=== PATIENT | female | born 1955 | race Caucasian/White ===

== ENCOUNTER → 2017-02-13 | Outpatient (REF) | payer MEDICARE ==
[~2017-02-13] MED LIST: /CELE20CA PO; GABA300C2 PO; PERC7.5T12 PO; PRAZ1CAP PO; SERO50TA PO; SOMA350T PO; TRAZ50TA2 PO; VENL37TA OR; WELL75TA PO; flexeril OR; oxycodone OR
[2017-02-13 19:27] LABS: TOTAL PROTEIN 6.9 GM/DL (6.4-8.2)
[2017-02-13 19:32] LABS: VITAMIN B12 LEVEL 1687 PG/ML
[2017-02-13 19:33] LABS: FOLATE 22.7 NG/ML
[2017-02-14 12:52] LABS: ALBUMIN 4.24 GM/DL (3.29-5.55); ALBUMIN % 61.5 % (55.8-66.1); GAMMA GLOBULIN % 12.4 % (11.1-18.8)
[2017-02-18 08:06] LABS: Lyme Disease IgG/IgM Antibodie <0.91 ISR (0.00-0.90); Lyme Disease IgM Ab Quantitati <0.80 index (0.00-0.79); VITAMIN E LEVEL 12.1 mg/L (6.5-21.5)
== END ==
LOC: M LABNEURO 13:28
PROVIDERS: ATTEND Psychiatry & Neurology Neurology
DX: E11.9 Type 2 diabetes mellitus without complications (principal); A69.20 Lyme disease, unspecified; E61.0 Copper deficiency; G60.9 Hereditary and idiopathic neuropathy, unspecified; Z79.899 Other long term (current) drug therapy

== ENCOUNTER → 2021-01-10 | Outpatient (CLI) | payer MEDICARE ==
[~2021-01-10] MED LIST changes: -/CELE20CA PO; +CELE1CAP4 PO
== END ==
LOC: M PAIN 08:30
PROVIDERS: ATTEND Anesthesiology
DX: M96.1 Postlaminectomy syndrome, not elsewhere classified (principal); K21.9 Gastro-esophageal reflux disease without esophagitis; M25.552 Pain in left hip; Z79.899 Other long term (current) drug therapy; Z87.891 Personal history of nicotine dependence; Z88.8 Allergy status to other drugs, medicaments and biological substances

== ENCOUNTER → 2021-01-10 | Outpatient (CLI) | payer MEDICARE ==
--- NOTE | 2021-01-10 11:40 | REP ---
INDICATION: INTERVERTEBRAL DISC DISORDERS W RADICULOPATHY, LUMBAR REGION. COMPARISON: 06/18/2013 the latest prior a two view exam TECHNIQUE: Seven views including flexion and extension bending views. FINDINGS: There is advanced disc space narrowing at every level which has increased significantly. Anterior lipping and endplate sclerosis is increased and developed respectively. Posterior fixators at L3-4 and L4-5 are unchanged. Hypertrophic degenerative facet joint changes are seen at every level bilaterally increased. There is a grade 1 L4 upon L5 spondylolisthesis which appears to have increased slightly compared to the prior exam with the neutral positions are compared and the flexion and extension bending views show no evidence of significant change at that level. Marginal osteophytosis is seen bilaterally also increased rather significantly compared to the prior exam. 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 A dorsal column stimulator has been placed since the last exam. The tip is outside the confines of the radiographs. IMPRESSION: Advanced chronic changes and other findings as described above. <Electronically signed by Craig Catalan > 01/10/21 [id number]
== END ==
LOC: M RAD 10:44
PROVIDERS: ATTEND Anesthesiology
DX: M51.16 Intervertebral disc disorders with radiculopathy, lumbar region (principal)
CPT/HCPCS: 72114; G0463